=== PATIENT | female | born 1980 | race Caucasian/White ===

== ENCOUNTER → 2019-07-15 | Outpatient (CLI) | payer MEDICARE, OTHER ==
[~2019-07-15] MED LIST: ACET325 PO; ALBU90OI INH; AMOX500 PO; ANTOXYBENA RIGHTEAR; AZIT250 PO; DOCU100 PO; FLUSAL2505; GABA400; HYDACE5 PO; HYDMOR2 PO; IBUHYD PO; IBUP800 PO; META800 PO; NAPR500 PO; NEOPOLHCSU RIGHTEAR; OXYACE5T PO; PENVK500 PO; PRED20 PO; PROM25 PO; TOBDEXOPSU OD; TRAM50 PO; Veetids 500500 MG PO; Verotin-Gr Cap1 EACH PO; [UNRECOGNIZED DRUG - OTHER]
[2019-07-17 15:10] LABS: HPV 16 Negative (Negative); HPV 18 Negative (Negative); HPV OTHER HR TYPES Negative (Negative)
== END ==
LOC: LAB 12:11 → LAB SHORT 12:11
PROVIDERS: Nurse Practitioner Family
DX: Z01.419 Encounter for gynecological examination (general) (routine) without abnormal findings (principal)
CPT/HCPCS: 87070; 87205; 87624; G0145

== ENCOUNTER 2019-11-12 08:22 | Day surgery (SDC) | payer MEDICARE, OTHER | END 2019-11-12 22:49 | disposition home or self-care (01) | LOC: RAD 08:22 → MRI 10:00 → RAD 22:49 | DX: M24.852 Other specific joint derangements of left hip, not elsewhere classified (principal) | CPT/HCPCS: 20610; 73722; 77002; A9579; Q9967 ==

== ENCOUNTER → 2019-11-26 | Outpatient (CLI) | payer MEDICARE, OTHER | END | disposition home or self-care (01) | LOC: LAB 09:45 → LAB SHORT 09:45 | DX: N39.0 Urinary tract infection, site not specified (principal) | CPT/HCPCS: 87077; 87086; 87186 ==